=== PATIENT | male | born 1965 | race Caucasian/White ===

== ENCOUNTER 2018-12-03 00:23 | Inpatient (IN) | payer OTHER, BC ==
--- NOTE | 2018-12-02 13:13 | HISTORY AND PHYSICAL ---
DATE OF ADMISSION: December 03, 2018 IDENTIFICATION/CHIEF COMPLAINT Sudhakar is a 52-year old gentleman with a chief complaint of right knee pain. HISTORY OF PRESENT ILLNESS Patient has a history of arthritis and injuries to the knee leading to progressive pain and disability, refractory to conservative care. Surgery is indicated to relieve symptoms after failure of nonoperative measures. PAST MEDICAL HISTORY 1. Hypertension, well controlled on medication. 2. Childhood history of pneumonia. ALLERGIES No known drug allergies. CURRENT MEDICATIONS 1. Losartan 100/25 mg p.o. q. day. 2. Baby aspirin once a day. PAST SURGICAL HISTORY 1. Right hip replacement. 2. Left arm and left humerus surgery. 3. Right shoulder cuff repair. SOCIAL HISTORY Notable for chewing a can of tobacco a week. Denies smoking. Drinks alcohol on a social occasion. Denies abuse. REVIEW OF SYSTEMS Unremarkable. FAMILY HISTORY Negative. PHYSICAL EXAMINATION GENERAL: Healthy male. HEENT: Normocephalic, atraumatic. NECK: Supple. LUNGS: Clear. HEART: Regular. ABDOMEN: Soft. ORTHOPEDIC EXAM The right knee is stiffened on range. He has an effusion present. Crepitus is noted throughout. Gross stability is good. Extensor function is intact. Radiographs demonstrate advanced degenerative changes. ASSESSMENT Right degenerative joint disease refractory to conservative care. PLAN Per patient request, we will proceed with total knee arthroplasty. The nature of the procedure, risks, benefits and anticipated rehabilitation course were outlined and further discussion of nonoperative alternatives was also had. The risks of the procedure include, but are not limited to, , major medical or anesthetic complications, infection, neurovascular injury, blood transfusion, stiffness, scarring, fracture, tendon rupture, instability, implant loosening, migration or failure, persistent or recurrent pain, need for additional surgery and other unforeseen. He understands and wishes to proceed. A signed permit is placed on the chart. No guarantees given or implied. [facility]
[2018-12-02 13:31] LABS: INR 0.99
[2018-12-03] VITALS (8 sets, daily range): BP systolic 97–128; BP diastolic 58–87
[~2018-12-03] VITALS: Ht 170.2 cm; Wt 106.1 kg
[~2018-12-03 00:23] MED LIST: ASPI81TA94 PO; LOSA-54 PO
[2018-12-03] MEDS ORDERED: NORMOSOL R SOLN(*) 1000 ML BAG 1,000 ML IV PRN ×2 (08:45→13:20)
[2018-12-03] MEDS ORDERED: LIDOCAINE/SOD BICARB 8.4% SYR ID ONE (08:45)
[2018-12-03] MEDS ORDERED: FAMOTIDINE 20 MG TAB PO ONE (08:45)
[2018-12-03] MEDS ORDERED: ACETAMINOPHEN 500 MG TAB PO ONE (08:45)
[2018-12-03] MEDS ORDERED: MIDAZOLAM 2 MG/2 ML VIAL IVP PRN (08:45)
[2018-12-03] MEDS ORDERED: CELECOXIB 200 MG CAP PO ONE (08:45)
[2018-12-03] MEDS ORDERED: TRANEXAMIC AC 1000 MG/10ML SDV 1,000 MG in DEXTROSE 5% 50 ML BAG 50 ML IV ONE ×2 (08:45→10:35)
[2018-12-03] MEDS ORDERED: ROPIVACAINE/EPI/CLONIDINE/KET 50 ML SYRINGE INJ ONE (08:45)
[2018-12-03] MEDS ORDERED: PREGABALIN 150 MG CAPSULE PO ONE (08:45)
[2018-12-03] MEDS ORDERED: ceFAZolin(*) 2GM/D5W 50ML 50 ML IVPB ONE (08:45)
[2018-12-03] MEDS ORDERED: LIDOCAINE 2% IV 100 MG/5ML SYR ONE (09:05)
[2018-12-03] MEDS ORDERED: fentaNYL CITR 100 MCG/2 ML AMP ONE ×2 (09:05→12:03)
[2018-12-03] MEDS ORDERED: PROPOFOL EMUL(*) 10MG/ML 20 ML 20 ML ONE (09:06)
[2018-12-03] MEDS ORDERED: VANCOMYCIN 1 GM VIAL ONE (10:10)
[2018-12-03] MEDS ORDERED: DEXAMETHASONE SOD PHOS 10MG/ML ONE (10:52)
[2018-12-03] MEDS ORDERED: ONDANSETRON 4 MG/2 ML VIAL ONE (10:55)
[2018-12-03] MEDS ORDERED: KETAMINE HCL 200 MG/20 ML MDV ONE (10:56)
[2018-12-03] MEDS ORDERED: ACETAMINOPHEN 325 MG TAB PO PRN (13:20)
[2018-12-03] MEDS ORDERED: BISACODYL 10 MG SUPP PR PRN (13:20)
[2018-12-03] MEDS ORDERED: diphenhydrAMINE 50 MG/ML VIAL IVP PRN (13:20)
[2018-12-03] MEDS ORDERED: BENZOCAINE/MENTHOL 1 EACH LOZG PO PRN (13:20)
[2018-12-03] MEDS ORDERED: FLUSH 10 ML SYR IVP PRN (13:20)
[2018-12-03] MEDS ORDERED: MAGNESIUM HYDROXIDE* 30ML UDCP PO PRN (13:20)
[2018-12-03] MEDS ORDERED: ZOLPIDEM TARTRATE 5 MG TAB PO PRN (13:20)
[2018-12-03] MEDS ORDERED: diphenhydrAMINE 25 MG CAP PO PRN (13:20)
[2018-12-03] MEDS ORDERED: PROMETHAZINE 25 MG/ML 1 ML AMP IVP PRN (13:20)
--- NOTE | 2018-12-03 13:43 | RADIOLOGY IMAGING REPORT ---
FACILITY: [facility] [place] PATIENT NAME: Sudhakar Dow : 1965 MR: [id number] V: [id number] EXAM DATE: ORDERING PHYSICIAN: PRIYANK DUMAS TECHNOLOGIST: Location: [facility] Patient: Sudhakar Dow : 1965 Visit/Account:[id number] Date of Sevice: 12/03/2018 KNEE LIMITED RIGHT Indication: S/P TOTAL KNEE ARTHROPLASTY, CHECK PLACEMENT Comparison: None. Findings: There are postoperative changes from right total knee arthroplasty. The femoral, patellar, and tibial components are in good alignment. Impression: Postoperative changes right total knee arthroplasty. Report Dictated By: Sudhakar Marshall at 12/03/2018 1:39 PM Report E-Signed By: Sudhakar Marshall at 12/03/2018 1:40 PM WSN:[id number]
--- NOTE | 2018-12-03 15:23 | Hospitalist Consultation ---
History of Present Illness Requesting Physician Dr. Quiroga Reason for Consult Medical Management Chief Complaint s/p right knee replacement History of Present Illness He was admitted s/p right knee replacement. It is reported the surgery went well and without complication. History Problems: (1) Hypertension Status: Chronic Home Meds Reported Medications Aspirin (ASPIRIN) 81 Mg Tab.chew, 81 MG PO QDAY, TAB.CHEW 11/26/18 Losartan/Hydrochlorothiazide (LOSARTAN-HCTZ 100-25 MG TAB) 1 Each Tablet, 1 EACH PO QDAY 11/26/18 Allergies: Coded Allergies: No Known Drug Allergies (Unverified , 11/26/18) Patient History: Aortic aneurysm MOTHER Bone cancer FATHER, Hx Smoking: No (CHEWS TOBACCO -1 CAN Q 2DAYS) Caffeine Intake: Coffee Caffeine/Cups Per Day: 1 POT OF COFFEE OCC, Hx Alcohol Use: No Hx Substance Use Disorder: No Social Drug Use: Never History of IV Drug Use: No Review of Systems All Systems Reviewed/Normal: Yes, Except as Noted Exam Vital Signs Vital Signs Date Time Temp Pulse Resp B/P (MAP) Pulse Ox O2 Delivery O2 Flow Rate FiO2 12/03/18 14:36 51 16 98 12/03/18 07:50 96.9 128/87 (101) Room Air General Appearance: Alert, Awake, No Acute Distress, Afebrile Neuro: No Gross deficits Cardiovascular: Regular Rate and Rhythm Respiratory: No Respiratory Distress, Clear to Auscultation GI: Abd Soft and Non-Tender Psych: Alert & Oriented X3, Appropriate Mood & Affect Assessment and Plan Problems: (1) Status post right knee replacement Status: Acute Assessment & Plan: Followed by Dr. Quiroga. He will placed on Aspirin for DVT prophylaxis. (2) Hypertension Status: Chronic Assessment & Plan: He is on chronic treatment with Losartan and H ydrochlorothiazide. The Losartan was restarted with hold parameters. Venous Thromboembolism Antithrombotics Is Pt On Any Antithrombotics?: No Problem Qualifiers (1) Hypertension: Hypertension type: essential hypertension Qualified Codes: I10 - Essential ( primary) hypertension BERTRAND MARCELO Dec 03, 2018 15:23
[2018-12-03] MEDS: CELECOXIB 200 MG CAP PO SCH (17:37)
[2018-12-03] MEDS: ceFAZolin(*) 1 GM VIAL 1 GM in NS(*) 0.9% 100 ML ADDVANT BAG 100 ML IVPB SCH (18:26)
[2018-12-03] MEDS: APAP/HYDROCODONE 325/7.5 TAB PO PRN (19:07)
--- NOTE | 2018-12-03 19:11 | OPERATIVE REPORT 1 ---
EVENT DATE: December 03, 2018 SURGEON: Jose Quiroga MD ANESTHESIOLOGIST: Jet Vuong MD ANESTHESIA: General plus spinal. LATHE HAND: Neto Horne PA-C PREOPERATIVE DIAGNOSIS Right knee degenerative joint disease. POSTOPERATIVE DIAGNOSIS Right knee degenerative joint disease. PROCEDURE PERFORMED Right total knee arthroplasty. ESTIMATED BLOOD LOSS Minimal. DRAINS None. SPECIMENS None. COMPLICATIONS None apparent. TOURNIQUET TIME 52 minutes IMPLANTS USED Purer Skinathlon knee system with a 3 right PS femur, 4 standard universal tibial baseplate, 31 mm universal cemented, all-polyethylene patellar button, 11 mm PS tibial tray liner. Polyethylene is X3. INDICATIONS Junior has intractable pain and disability related to end-stage arthritis. Surgery is indicated to relieve symptoms after failure of nonoperative measures. DESCRIPTION OF PROCEDURE Patient is taken to the operating room. He is placed supine on the operating table. Spinal block is administered by the anesthesiologist. General anesthesia is induced. Standard block and TXA are administered IV. Right lower extremity is prepped and draped in the usual sterile fashion for orthopedic surgery. Limb is exsanguinated with an Esmarch bandage. Tourniquet is inflated to 250 mmHg. Midline longitudinal incision is made, carried down through the skin and subcutaneous tissue to the extensor mechanism. Full-thickness flaps are developed far enough medially to allow medial parapatellar arthrotomy be performed. Patella is everted. Knee is brought into flexed position. Fat pad, anterior horns of the menisci, and the cruciate ligaments are debrided. Subperiosteal capsule release is performed circumferentially 1 cm around the upper plateau to start to balance the knee. A step drill is used to enter the distal femur. The 10-inch long alignment guide is used to engage the isthmus, cut set for 5 degrees valgus relative to the anatomic axis. The 10 mm resection block is applied and pinned. Cuts made with an oscillating saw. AP sizing guide is applied to the distal femoral cut, positioned for 3 degrees of external rotation relative to the posterior condyles. In spite of valgus alignment, there is no hypoplasia. A size 3 is optimal without risk of notching. A four-in-one cutting block is applied. Anterior, posterior, posterior chamfer, and anterior chamfer cuts are made respectively. PS block is applied and centered. Medial and lateral bone is removed from the box. Trial femur has nice [id number] fit. Attention is turned to tibial preparation. Extramedullary guide is applied, positioned for varus, valgus, posterior slope, and rotation. This is set to resect 2 mm from the relatively deficient lateral tibial plateau. It is dropped down another millimeter or so to assure an adequate cut. Block is pinned. Extramedullary alignment check is made. Cut is made with an oscillating saw. At this point after a bit of release of the IT band and the popliteus, I recessed off the femur. The gaps are balanced and symmetric. The size 4 tibial baseplate provides good coverage without overhang. This is inserted along with trial liner and trial femur. Kneecap is taken from a starting thickness of 22 to a residual of 14 with a patellar clamp and oscillating saw. The 31 provides optimal bony coverage without soft tissue overhang. Lug holes are drilled. Patella tracks nicely with the no-touch technique. Final tibial preparation consists of assuring appropriate rotational and translational position of the component. Boss is reamed. Fin is punched. Surface lavaged. A mix of methacrylate is made. Components cemented in a single stage. Once the cement is fully polymerized, tourniquet is deflated, and hemostasis is assured. Wound is copiously lavaged. The 11 PS tibial tray liner trial fills up the gap ideally, allowing the knee to drop to full extension without hyperextension, providing optimal soft tissue tension and stability. Tray is lavaged and dried. The actual liner is locked into the baseplate. Joint is reduced. Arthrotomy is closed in flexion with #2 Ethibond, subcutaneous tissue with 3-0 Vicryl, and the skin with surgical ally. Xeroform is applied for a dry, sterile dressing and compression wrap. Patient is awakened from anesthesia and taken to the recovery room informed consent having tolerated the procedure well. PLAN Plan is for standard TKA rehab protocol. [facility]
[2018-12-03] MEDS: DIAZEPAM 5 MG TAB PO PRN (23:46)
[2018-12-04] MEDS: APAP/HYDROCODONE 325/7.5 TAB PO PRN ×4 (01:55→22:42)
[2018-12-04] MEDS: ceFAZolin(*) 1 GM VIAL 1 GM in NS(*) 0.9% 100 ML ADDVANT BAG 100 ML IVPB SCH ×2 (02:23→10:49)
[2018-12-04] MEDS: CELECOXIB 200 MG CAP PO SCH ×2 (07:18→16:56)
[2018-12-04] MEDS: DIAZEPAM 5 MG TAB PO PRN ×3 (07:18→21:45)
[2018-12-04 07:22] VITALS: BP 100/65
[2018-12-04] MEDS: ASPIRIN 325 MG TAB PO SCH (08:20)
[2018-12-04] MEDS: LOSARTAN POTASSIUM 50 MG TAB PO SCH (08:22)
--- NOTE | 2018-12-04 11:47 | Hospitalist Progress Note ---
Subjective Progress Notes Subjective He was admitted after knee replacement. He had no acute events overnight. He has no complaints this morning. Patient Complains of: Cardiovascular: No: Chest Pain Respiratory: No: Shortness of Breath Physical Exam Vital Signs Date Time Temp Pulse Resp B/P (MAP) Pulse Ox O2 Delivery O2 Flow Rate FiO2 12/04/18 07:28 91 Room Air 12/04/18 07:22 98.2 53 16 100/65 (77) 1.5 Intake and Output 12/04/18 07:00 Intake Total 3070 ml Output Total 650 ml Balance 2420 ml Intake Oral 820 ml IV Total 2250 ml Output Urine Total 500 ml Estimated Blood Loss 150 ml # Voids 1 General Appearance: Alert, Awake, No Acute Distress, Afebrile Neuro: No Gross deficits Cardiovascular: Regular Rate and Rhythm Respiratory: No Respiratory Distress, Clear to Auscultation Psych: Alert & Oriented X3, Appropriate Mood & Affect Assessment and Plan Problems: (1) Status post right knee replacement Status: Acute Assessment & Plan: Followed by Dr. Quiroga. He will placed on Aspirin for DVT prophylaxis. (2) Hypertension Status: Chronic Assessment & Plan: He is on chronic treatment with Losartan and Hydrochlorothiazide. The Losartan was restarted with hold parameters. Exam Sepsis Risk: No Definite Risk Problem Qualifiers (1) Hypertension: Hypertension type: essential hypertension Qualified Codes: I10 - Essential (primary) hypertension BERTRAND MARCELOP Dec 04, 2018 11:47
--- NOTE | 2018-12-04 12:17 | NUR ---
Physical Therapy Impression Pt requires encouragement to complete bed mobility without assist. Will need further emphasis in that regard. Pt did get dizzy upon sitting at EOB, SpO2 in low 80's on room air. Placed supplementary O2 on at 2.0 L, pt back in mid 90's and reporting dizziness had subsided. CGA sit to stand from EOB. Ambulation around foot of bed with FWW and CGA. Pt doing well bearing weight through R LE. Pt up in chair at end of session. Encouraged pt to ambulate to/from bathroom for all toileting needs rather than utilizing the urinal. Pt verbalized understanding. Cont. with POC. Physical Therapy Goals Patient's Goals
[2018-12-04 15:24] VITALS: BP 116/71
[2018-12-04 19:54] VITALS: BP 117/76
[2018-12-04 22:52] VITALS: BP 133/83
[2018-12-05 03:36] VITALS: BP 130/85
[2018-12-05] MEDS: DIAZEPAM 5 MG TAB PO PRN ×2 (03:38→10:30)
[2018-12-05] MEDS: APAP/HYDROCODONE 325/7.5 TAB PO PRN ×2 (03:38→07:44)
[2018-12-05 06:41] VITALS: BP 137/91
[2018-12-05] MEDS: CELECOXIB 200 MG CAP PO SCH (07:44)
--- NOTE | 2018-12-05 08:00 | NUR ---
Physical Therapy Impression Late Entry for PT eval completed 12/03/18. Pt tolerated ambulation to/from BR and fitting for CPM with education on self progression. Physical Therapy Goals 1. Pt to be SBA/CGA for bed mobility 2. Pt to be SBA/CGA for transfers 3. Pt to be SBA/Modified indep for ambulation x 100' with least restrictive device 4. Pt to be SBA/CGA for up/down 4 steps with rail. Patient's Goals
--- NOTE | 2018-12-05 08:30 | NUR ---
Physical Therapy Impression Late Entry for visit completed 12/04/18. Pt progressing well. Plan to address stairs in rehab dept tomorrow prior to anticipated d/c home with out pt PT. Physical Therapy Goals 1. Pt to be SBA/CGA for bed mobility 2. Pt to be SBA/CGA for transfers 3. Pt to be SBA/Modified indep for ambulation x 100' with least restrictive device 4. Pt to be SBA/CGA for up/down 4 steps with rail. Patient's Goals
[2018-12-05] MEDS: ASPIRIN 325 MG TAB PO SCH (08:38)
[2018-12-05] MEDS: LOSARTAN POTASSIUM 50 MG TAB PO SCH (08:38)
--- NOTE | 2018-12-05 08:39 | NUR ---
AM losartan given per SENIOR POLICY ANALYST. SENIOR POLICY ANALYST aware of blood pressure being below parameters
--- NOTE | 2018-12-05 08:41 | NUR ---
Physical Therapy Impression Pt met PT goals and is safe to d/c home from a mobility stand point when medically appropriate. PT instruction for stair negotiation with bilateral railing and pt completed with CGA. Pt and pt's spouse instructed in use of CPM, good re-demonstration completed. No further PT visits planned, home with OP PT services. Physical Therapy Goals Patient's Goals
[2018-12-05] MEDS ORDERED: ASPI-757 PO (08:57)
--- NOTE | 2018-12-05 10:17 | Hospitalist Progress Note ---
Subjective Progress Notes Subjective He was admitted after knee replacement. He has complaints of pain to the surgery site. He had no acute events overnight. Patient Complains of: Cardiovascular: No: Chest Pain Respiratory: No: Shortness of Breath Physical Exam Vital Signs Date Time Temp Pulse Resp B/P (MAP) Pulse Ox O2 Delivery O2 Flow Rate FiO2 12/05/18 07:25 91 Room Air 12/05/18 06:41 98.1 67 20 137/91 (106) 12/05/18 03:36 1.0 Intake and Output 12/05/18 07:00 Intake Total 890 ml Balance 890 ml Intake Oral 890 ml # Voids 4 General Appearance: Alert, Awake, No Acute Distress, Afebrile Neuro: No Gross deficits Cardiovascular: Regular Rate and Rhythm Respiratory: No Respiratory Distress, Clear to Auscultation GI: Soft and Non-Tender Psych: Alert & Oriented X3, Appropriate Mood & Affect Assessment and Plan Problems: (1) Status post right knee replacement Status: Acute Assessment & Plan: Followed by Dr. Quiroga. He will placed on Aspirin for DVT prophylaxis. (2) Hypertension Status: Chronic Assessment & Plan: He is on chronic treatment with Losartan and Hydrochlorothiazide. The Losartan was restarted with hold parameters. He will resume his medications as usual tomorrow at home. Exam Sepsis Risk: No Definite Risk Problem Qualifiers (1) Hypertension: Hypertension type: essential hypertension Qualified Codes: I10 - Essential (primary) hypertension BERTRAND MARCELO Dec 05, 2018 10:17
[2018-12-05 10:32] VITALS: BMI 36.6
[2018-12-05 15:35] VITALS: Ht 170.2 cm; Wt 106.1 kg
== END 2018-12-05 10:45 | disposition home or self-care (01) | DRG 470 ==
LOC: OR 00:23 → MED 14:36
PROVIDERS: ADMIT Orthopaedic Surgery; ATTEND Orthopaedic Surgery
PROC: 0SRC0J9 Replacement of Right Knee Joint with Synthetic Substitute, Cemented, Open Approach (ICD-10-PCS; principal; 2018-12-03 10:38)
DX: M17.11 Unilateral primary osteoarthritis, right knee (principal); I10 Essential (primary) hypertension; E66.9 Obesity, unspecified; Z96.641 Presence of right artificial hip joint; Z68.36 Body mass index [BMI] 36.0-36.9, adult
CPT/HCPCS: 36415; 85610; 86850; 86900; 86901; 97161; C1713; C1776; J0690; J1100; J2001; J2250; J2405; J2704; J3010; J3370; J3490; J7050; J7060